=== PATIENT | male | born 1955 | race American Indian/Alaskan Native ===

== ENCOUNTER 2016-08-26 15:53 | Emergency (ER) | payer MEDICAID, MEDICARE ==
[2016-08-26 15:54] VITALS: BMI 20.7
[2016-08-26 16:11] VITALS: RESP 20
[2016-08-26] MEDS ORDERED: Oxycodone/Acetaminophen 5/325 mg Tab PO STA (16:37)
[2016-08-26] MEDS ORDERED: Oxycodone/Acetaminophen 5/325 mg Tab ONE (17:24)
[2016-08-26 17:36] LABS: BASO # 0.1 K/uL (0.0-0.2); BASO % 0.6 % (0.0-2.0); EOS # 0.3 K/uL (0.0-0.7); EOS % 2.7 % (0.0-4.0); LYMPH # 1.2 K/uL (1.0-4.3); LYMPH % 11.1 % (20.0-40.0); MEAN CELL VOLUME 86.7 fL (80.0-94.0); MEAN CORPUSCULAR HEMOGLOBIN 29.1 pg (27.0-31.0); MEAN CORPUSCULAR HGB CONC 33.5 g/dL (33.0-37.0); MEAN PLATELET VOLUME 7.3 fL (7.2-11.7); MONO # 0.5 K/uL (0.0-0.8); MONO % 4.7 % (0.0-10.0); RED CELL DISTRIBUTION WIDTH 16.2 % (11.5-14.5); WHITE BLOOD COUNT 10.5 K/uL (4.8-10.8)
[2016-08-26 17:46] LABS: CHLORIDE 103 mmol/L (98-107)
[2016-08-26 17:47] LABS: INR 1.1; POTASSIUM 3.7 mmol/L (3.6-5.2); SODIUM 144 mmol/L (132-148)
[2016-08-26 17:49] LABS: ALB/GLOB RATIO 0.8 (1.0-2.1); ALKALINE PHOSPHATASE 100 U/L (38-126); AST/SGOT 33 U/L (17-59); BILIRUBIN,TOTAL 0.4 mg/dL (0.2-1.3); BLOOD UREA NITROGEN 21 mg/dL (9-20); CARBON DIOXIDE 28 mmol/L (22-30); GFR AFRICAN-AMERICAN > 60; TOTAL PROTEIN 7.5 g/dL (6.3-8.3)
[2016-08-26 17:50] LABS: ALT/SGPT 26 U/L (21-72); CALCIUM 8.4 mg/dl (8.6-10.4); GLUCOSE,RANDOM 120 mg/dL (75-110)
--- NOTE | 2016-08-26 18:30 | C.PDOC ---
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 etiology is IMPROVED c/w 08/25/16) Reevaluation Time: 17:45 Reassessment Condition: Improved (unclear if pt on surgical schedule for tomorrow as originally planned. Pending call-back by Ortho YOLA Grier.) Medical Decision Making Medical Decision Making: ? RA related RLL haziness? Unclear if will affect pt to be medically cleared for surgery tomorrow. 1900: d/w Apolloly- defer surgery for now. 1900: d/w Radiologist- ? small pnx RLL area vs loculated effusion vs mass- CT pending Signed over to overnight ED doc to f/u CT- Disposition Doctor Will See Patient In The: Office Counseled Patient/Family Regarding: Studies Performed, Diagnosis - Disposition Disposition Time: 19:00 Condition: GOOD - Clinical Impression Clinical Impression: Osteoarthritis of hip Physician Patient Turnover Patient Signed Over To: Remberto Adkins Handoff Comments: follow up CT
--- NOTE | 2016-08-26 19:03 | RAD ---
HISTORY: pre-op prior CXR w ? RLL haziness prior CXR COMPARISON: Chest x-ray performed 08/17/16 TECHNIQUE: Chest PA and lateral FINDINGS: LUNGS: Biapical pleural thickening. Hyperinflation may be seen in setting of COPD. Chronic appearing interstitial markings at the right lower lobe. Please note that chest x-ray has limited sensitivity for the detection of pulmonary masses. PLEURA: Small right bilateral lower lobe focal opacity, possibly loculated pleural effusion or consolidation. Lucency at the right lung base measuring approximately 1.5 cm maximum dimension, possibly small pneumothorax. CARDIOVASCULAR: Heart size appears within normal limits. Ectatic aorta. OSSEOUS STRUCTURES: Osseous demineralization. Degenerative changes of the spine and shoulders. VISUALIZED UPPER ABDOMEN: Unremarkable. OTHER FINDINGS: None. IMPRESSION: Small loculated pleural effusion versus consolidation at the right lung base ; recommend follow-up to ensure complete resolution. Question small pneumothorax at the right lung base measuring maximally 1.5 cm. Chronic appearing interstitial markings the right lower lobe. Hyperinflation may be seen in the setting of COPD. Findings discussed with Dr. Turner on 08/26/16 at 6:57 p.m.
--- NOTE | 2016-08-26 21:14 | CT ---
EXAM: CT Chest Without Intravenous Contrast. CLINICAL HISTORY: 60 years old, male; Signs and symptoms; Mass, lump, or swelling in the chest; Additional info: Rll eff vs mass vs pnx (tiny) h/o ra TECHNIQUE: Axial computed tomography images of the chest without intravenous contrast. This CT exam was performed using one or more of the following dose reduction techniques: automated exposure control, adjustment of the mA and/or kV according to patient size, and/or use of iterative reconstruction technique. Coronal and sagittal reformatted images were created and reviewed. EXAM DATE/TIME: 08/26/2016 6:58 PM COMPARISON: There are no prior studies for comparison. FINDINGS: Artifacts: Motion artifact degrades image quality. Lungs and pleural spaces: Trachea and main bronchi are patent. There is small blebs in the right upper lobe. There is no focal consolidation in right upper or middle lobes. There is atelectasis and scarring in the right middle lobe. There is pleural thickening in the right middle lobe. There is a moderate size right pleural effusion. There is adjacent airspace disease. There is minimal atelectasis and scarring at the left base. There are no focal infiltrates at the left. There is no left effusion. Heart and vasculature: Heart size is normal. There are coronary calcifications.There is trace fluid in pericardial recesses.Aorta and main pulmonary artery are normal in caliber. Mediastinum: There are mildly prominent middle mediastinal nodes.Clarisse are not optimally evaluated without contrast material. The esophagus is not optimally evaluated. There is a small hiatal hernia. Thyroid: Thyroid is unremarkable Bones/joints: There is severe degenerative changes in both shoulders. There degenerative changes in the spine. Soft tissues: unremarkable Lymph nodes: There is axillary adenopathy bilaterally Upper abdomen: There are no acute abnormalities in the visualized portion of the abdomen. IMPRESSION: Moderate size right pleural effusion with right lower lobe airspace disease atelectasis and/or infiltrate; pleural thickening in the anterior right hemithorax, no focal mass; axillary adenopathy Additional findings as described above.
[2016-08-26 23:02] VITALS: O2SAT 97
[2016-08-27 01:00] VITALS: BP 121/72; PULSE 88; TEMP 98
--- NOTE | 2016-08-27 11:44 | CARD ---
APPROVED REPORT EKG Measurement Heart [id number] <Conclusion> Normal sinus rhythm Normal ECG
== END 2016-08-27 00:59 | disposition home or self-care (01) ==
LOC: C.ER 15:53
DX: M16.0 Bilateral primary osteoarthritis of hip (principal)